=== PATIENT | female | born 1980 | race Two or more races ===

== ENCOUNTER 2019-02-23 16:12 | Emergency (ER) | payer MEDICAID ==
[~2019-02-23] VITALS: Ht 165.1 cm; Wt 72.1 kg
[2019-02-23 16:29] VITALS: BP 128/71
[2019-02-23] MEDS ORDERED: ACETAMINOPHEN-1 EAC1 ORAL (16:40)
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
[2019-02-23] MEDS ORDERED: Ketorolac 60mg Inj IM ONE (16:45)
[2019-02-23 17:01] VITALS: BP 128/71
== END 2019-02-23 17:01 | disposition home or self-care (01) ==
LOC: EMR 16:57
DX: S52.201S Unspecified fracture of shaft of right ulna, sequela (principal); X58.XXXS Exposure to other specified factors, sequela; R51 Headache; Z88.2 Allergy status to sulfonamides; Z88.8 Allergy status to other drugs, medicaments and biological substances
CPT/HCPCS: 96372; 99283